=== PATIENT | female | born 1980 | race African-American/Black ===

== ENCOUNTER 2016-05-09 10:01 | Emergency (ER) | payer SELFPAY ==
[~2016-05-09] VITALS: Ht 170.2 cm; Wt 129.0 kg
[2016-05-09 10:05] VITALS: BP 149/104; PULSE 115; RESP 17; TEMP 99.7; O2SAT 97
[2016-05-09] MEDS ORDERED: CHLOTAB5 PO (10:24)
--- NOTE | 2016-05-09 10:29 | PD ---
HPI . Cold symptoms Chief Complaint: ENT Complaint Time Seen by Provider: 10:19 Travel History International Travel<30 days: No Contact w/Intl Traveler<30days: No Traveled to known affect area: No History of Present Illness HPI Patient presents with a 3 day history of cold symptoms. She reports congestion , sore throat, fevers and chills, poor appetite, diarrhea. She states she's been taking Meredith-Ivoryton plus cold medicine without relief. She states she presents to us today because she is not any better yet. PFSH Past Medical History Medical History: Denies Significant Hx Diminished Hearing: No Tetanus Vaccination: < 5 Years Influenza Vaccination: No ?: Not LMP: 04/11/2015 Ovarian Cysts: Yes Past Surgical History Gynecologic Surgery: Yes (OVARIAN CYST ) Social History Alcohol Use: No (DENIES) Tobacco Use: No Substance Use: No Allergies-Medications (Allergen,Severity, Reaction): Coded Allergies: No Known Allergies (Verified , 05/09/16) Reported Meds & Prescriptions Reported Meds & Active Scripts Active Reported Meredith-I[place] Plus Cold (Zwcmrofuhtdqibqg-Tlaritrpxxais-Nuvrdcf) 2-7.8-325 Mg Tab 2 Tab PO Q4H PRN Fully disolve tablets in 4 oz of water. Review of Systems Except as stated in HPI: all other systems reviewed are Neg General / Constitutional: Positive: Fever, Chills HENT: Positive: Sore Throat, Congestion Respiratory: No: Cough Gastrointestinal: Positive: Diarrhea, Loss of Appetite Physical Exam Narrative GENERAL: This is a healthy-appearing young woman who is in no acute distress. SKIN: Warm and dry. HEAD: Atraumatic. Normocephalic. EYES: Pupils equal and round. ENT: No nasal bleeding or discharge. Mucous membranes pink and moist. Oropharynx has no erythema, exudate, tonsillar enlargement, edema. TMs are shiny keen with good light reflexes. Nose has some clear rhinorrhea. NECK: Trachea midline. No cervical lymphadenopathy. CARDIOVASCULAR: Regular rate and rhythm. Heart sounds are normal. RESPIRATORY: No accessory muscle use. Lungs are clear with full air movement throughout. GASTROINTESTINAL: Abdomen soft, non-tender, nondistended. MUSCULOSKELETAL: No obvious deformities. No edema. NEUROLOGICAL: Awake and alert. No obvious cranial nerve deficits. Motor grossly within normal limits. Normal speech. PSYCHIATRIC: Appropriate mood and affect; insight and judgment normal. Data Data Last Documented VS Vital Signs Date Time Temp Pulse Resp B/P Pulse Ox O2 Delivery O2 Flow Rate FiO2 05/09/16 10:05 99.7 115 17 149/104 97 MDM Medical Decision Making Medical Screen Exam Complete: Yes Emergency Medical Condition: Yes Differential Diagnosis Differential diagnosis includes but is not limited to influenza, upper respiratory infection, bronchitis, pneumonia Narrative Course Patient presents for evaluation and treatment of cold symptoms. She has no evidence of an ear infection, strep throat or bronchitis on exam. Diagnosis Primary Impression: Upper respiratory infection Qualified Code: J06.9 - Viral upper respiratory tract infection Patient Instructions: Cold Symptoms (ED), General Instructions Additional Instructions: I recommend the use of a Neti Pot. You may use a nasal spray such as Afrin for up to 3 days as needed for nasal congestion. You may take an djlm-hkh-tucrfdh antihistamine such as Zyrtec, Aurelia or Claritin as needed for runny secretions. You may take pseudoephedrine as needed for congestion. You will need to sign for this at the pharmacy. You may take plain Mucinex, 1200 mg twice a day as needed for thick secretions. You may take a cough syrup such as Delsym as needed for cough. Disposition: 01 DISCHARGE HOME Condition: Stable Marly Velasquez MD May 09, 2016 10:29
== END 2016-05-09 10:49 | disposition home or self-care (01) ==
LOC: PHED 10:01
DX: J06.9 Acute upper respiratory infection, unspecified (principal)
CPT/HCPCS: 99283